=== PATIENT | female | born 1990 | race Caucasian/White ===

== ENCOUNTER 2016-09-15 18:17 | Emergency (ER) | payer OTHER ==
[2016-09-15 18:46] VITALS: BP 101/68; PULSE 91; RESP 20; TEMP 97.8; O2SAT 98
--- NOTE | 2016-09-15 19:02 | C.PDOC ---
History Of Present Illness 26 yo female come in for evaluation of open wound over Right lower leg developed 2 days ago. Pt sts," leg stuck between car tires". Pt admits, ambulatory without difficulty. Denies deformity, weakness, sensory or vascular deficits to Right leg. Ambulate to Ed for evaluation, not in any apparent distress. Time Seen by Provider: 09/15/16 18:48 Chief Complaint (Nursing): Abnormal Skin Integrity History Per: Patient Onset/Duration Of Symptoms: Sudden Onset Past Medical History Reviewed: Historical Data, Nursing Documentation, Vital Signs Vital Signs: Last Vital Signs Temp 97.8 F 09/15/16 18:45 Pulse 91 H 09/15/16 18:45 Resp 20 09/15/16 18:45 BP 101/68 09/15/16 18:45 Pulse Ox 98 09/15/16 19:03 - Medical History PMH: No Chronic Diseases Surgical History: No Surg Hx Family History: States: No Known Family Hx - Social History Hx Tobacco Use: No Hx Alcohol Use: No Hx Substance Use: No - Immunization History Hx Tetanus Toxoid Vaccination: No Hx Influenza Vaccination: No Hx Pneumococcal Vaccination: No Review Of Systems Except As Marked, All Systems Reviewed And Found Negative. Constitutional: Negative for: Fever, Chills Musculoskeletal: Positive for: Leg Pain Skin: Positive for: Lesions Neurological: Negative for: Weakness, Numbness Physical Exam - Physical Exam Appears: Well, Non-toxic, No Acute Distress Skin: Normal Color, Warm, Other ((+) Right anterior lower leg 2cm laceration, cutaneous, dry, no erythema, no edema. no wound draining.) Extremity: Normal ROM, No Tenderness, No Pedal Edema, No Calf Tenderness (Right) , No Deformity Neurological/Psych: Oriented x3, Normal Speech, Normal Motor, Normal Sensation, Normal Reflexes ED Course And Treatment O2 Sat by Pulse Oximetry: 98 - Other Rad Right tib/fib X-Ray: Interpreted by Me, Viewed By Me Interpretation: no acute fx or FB noted Progress Note: On re-eavluation, pt is afeberile, hemodynamicaly stable. Non- toxic. RLE: exam c/w contusion to anterior tib/fib with laceration. FAROM, no neurovascular deficits. xray review and appears normal. Wound repaired. tetanus, abx given. Pt advised on wound care. ref. to F/u with PMD in 2 days for wound check. return to ED at any time if any sign of infection. Laceration - Laceration Repair Right lower leg Wound Length (In cm): 2cm Description Of Wound: Linear Wound Cleansed With: Betadine Anesthesia: Lidocaine 2% Wound Examination: Irrigated With Saline, No FB With Wound Exploration, No Tendon Injury With Wound Exploration Wound Closure: Suture (#4) Suture Technique And Material Used: Interrupted, Prolene (4-0) Wound Complexity: Simple Disposition Counseled Patient/Family Regarding: Studies Performed, Diagnosis, Need For Followup, Rx Given - Disposition Referrals: [facility] [Outside] Disposition: HOME/ ROUTINE Disposition Time: 19:40 Condition: STABLE Additional Instructions: Keep wound clean dry for 2 days Apply antibiotic cream topically Suture removal in 10-14 days return to ED at anytime if any sign of infection. Prescriptions: Amoxicillin/Clavulanate [Augmentin 875 MG-125 MG] 1 tab PO BID #14 tab Bacitracin OINT 1 applic TP BID #1 tube Instructions: Laceration (ED) - Clinical Impression Clinical Impression: Laceration - injury
[2016-09-15] MEDS ORDERED: Lidocaine 2% Inj (20ml) INFIL ONE (19:27)
[2016-09-15] MEDS ORDERED: Lidocaine 2% Inj (20ml) ONE (19:30)
[2016-09-15] MEDS ORDERED: Bacitracin 500 Units/gm Oint Foilpak UD ONE (19:51)
[2016-09-15] MEDS ORDERED: Amoxicillin-Clav 875-125 mg Tab PO STA (19:54)
[2016-09-15] MEDS ORDERED: Amoxicillin-Clav 875-125 mg Tab PO ONE (20:06)
--- NOTE | 2016-09-16 12:28 | RAD ---
PROCEDURE: Radiographs of the right tibia and fibula. HISTORY: injury COMPARISON: None available. TECHNIQUE: Frontal and lateral views obtained. FINDINGS: BONES: No evidence of acute displaced fracture nor dislocation. No cortical destructive changes seen. JOINT SPACES: Unremarkable. OTHER FINDINGS: There may be some mild localized pretibial soft tissue swelling IMPRESSION: There appears to be some mild localized pretibial soft tissue swelling however no evidence of acute displaced fracture nor dislocation
== END 2016-09-15 20:08 | disposition home or self-care (01) ==
LOC: C.ER 18:17
DX: S81.811A Laceration without foreign body, right lower leg, initial encounter (principal); W23.0XXA Caught, crushed, jammed, or pinched between moving objects, initial encounter

== ENCOUNTER 2016-09-29 17:55 | Emergency (ER) | payer OTHER ==
[2016-09-29 18:07] VITALS: BP 106/54; PULSE 84; RESP 18; TEMP 97.4; O2SAT 100
--- NOTE | 2016-09-29 18:26 | C.PDOC ---
History Of Present Illness 26 y/o female presents to ED for suture removal of a previous 4cm laceration to right whiteside. Patient denies pain, drainage, fever, numbness, weakness or any other complaints at this time. Time Seen by Provider: 09/29/16 18:14 Chief Complaint (Nursing): Suture/Staple Removal History Per: Patient History/Exam Limitations: no limitations Onset/Duration Of Symptoms: Days Ago Location Of Injury: Right: Leg, Anterior: Leg Past Medical History Reviewed: Historical Data, Nursing Documentation, Vital Signs Vital Signs: Last Vital Signs Temp 97.4 F L 09/29/16 18:03 Pulse 84 09/29/16 18:03 Resp 18 09/29/16 18:03 BP 106/54 L 09/29/16 18:03 Pulse Ox 100 09/29/16 18:27 Family History: States: Unknown Family Hx - Social History Hx Tobacco Use: No Hx Alcohol Use: Yes Hx Substance Use: No - Immunization History Hx Tetanus Toxoid Vaccination: Yes Hx Influenza Vaccination: No Hx Pneumococcal Vaccination: No Review Of Systems Except As Marked, All Systems Reviewed And Found Negative. Constitutional: Negative for: Fever, Chills Respiratory: Negative for: Shortness of Breath Gastrointestinal: Negative for: Nausea, Vomiting, Diarrhea Musculoskeletal: Negative for: Leg Pain Skin: Negative for: Rash Neurological: Negative for: Weakness, Numbness Physical Exam - Physical Exam Appears: Non-toxic, No Acute Distress Skin: Normal Color, Warm Head: Atraumatic, Normacephalic Eye(s): bilateral: Normal Inspection, PERRL, EOMI Oral Mucosa: Moist Throat: Normal, No Erythema Neck: Normal ROM Extremity: Tenderness (Tenderness surrounding right whiteside to anterior leg ), Other (Anterior whiteside sutured laceration to right leg, no drainage, no hematoma) Neurological/Psych: Oriented x3, Normal Speech, Normal Motor, Normal Sensation, Normal Reflexes ED Course And Treatment O2 Sat by Pulse Oximetry: 100 (RA) Pulse Ox Interpretation: Normal Disposition Counseled Patient/Family Regarding: Diagnosis, Need For Followup - Disposition Disposition: HOME/ ROUTINE Disposition Time: 18:26 Condition: STABLE Forms: General Discharge Instructions - POA Present On Arrival: None - Clinical Impression Clinical Impression: Removal of suture - PA / USER SUPPORT SPECIALIST / Resident Statement / has reviewed & agrees with the documentation as recorded. / has examined the patient and agrees with the treatment plan. - Scribe Statement The provider has reviewed the documentation as recorded by the Ramonitaibe Dora Khan All medical record entries made by the Ramonitaibbasil were at my direction and personally dictated by me. I have reviewed the chart and agree that the record accurately reflects my personal performance of the history, physical exam, medical decision making, and the department course for this patient. I have also personally directed, reviewed, and agree with the discharge instructions and disposition.
== END 2016-09-29 18:31 | disposition home or self-care (01) ==
LOC: C.ER 17:55
DX: Z48.02 Encounter for removal of sutures (principal)

== ENCOUNTER 2018-02-01 19:49 | Emergency (ER) | payer OTHER ==
[2018-02-01 19:58] VITALS: BP 108/67; PULSE 96; RESP 18; TEMP 98.1; O2SAT 100
[2018-02-01 20:25] LABS: SQUAMOUS EPITHIAL 6 /hpf (0-5); URINE BACTERIA RARE (<OCC); URINE BILIRUBIN NEGATIVE (NEGATIVE); URINE BLOOD NEGATIVE (NEGATIVE); URINE CLARITY Hazy (Clear); URINE COLOR Yellow (YELLOW); URINE GLUCOSE (UA) NORMAL (Normal); URINE LEUKOCYTE ESTERASE NEG Leu/uL (Negative); URINE PROTEIN 1+ mg/dL (NEGATIVE); URINE UROBILINOGEN NORMAL mg/dL (0.2-1.0)
[2018-02-01 20:26] LABS: HCG,QUALITATIVE URINE NEGATIVE (NEGATIVE)
--- NOTE | 2018-02-01 21:07 | C.PDOC ---
Addendum entered and electronically signed by Lety Dupont PA-C 02/02/18 03:13: Addendum Addendum: 02/02/18 03:13 Chart needs to be signed. Original Note: History Of Present Illness 27 y/o female presents to ED for evaluation of urinary frequency, urgency, and dysuria for the last few days. Pt states symptoms feel similar to previous UTI. Otherwise, denies fever, chills, back pain, hematuria, or vaginal discharge. Time Seen by Provider: 02/01/18 19:58 Chief Complaint (Nursing): Female Genitourinary History Per: Patient History/Exam Limitations: no limitations Onset/Duration Of Symptoms: Days Current Symptoms Are (Timing): Still Present Associated Symptoms: Urinary Symptoms. denies: Loss Of Appetite, Back Pain, Chest Pain Alleviating Factors: None Recent travel outside of the [place]: No Additional History Per: Patient Abnormal Vaginal Bleeding: No Past Medical History Reviewed: Historical Data, Nursing Documentation, Vital Signs Vital Signs: Last Vital Signs Temp 98.1 F 02/01/18 19:55 Pulse 96 H 02/01/18 19:55 Resp 18 02/01/18 19:55 BP 108/67 02/01/18 19:55 Pulse Ox 100 02/01/18 19:55 - Medical History PMH: Denies: Chronic Kidney Disease Family History: States: Unknown Family Hx - Social History Hx Tobacco Use: No Hx Alcohol Use: Yes Hx Substance Use: No - Immunization History Hx Tetanus Toxoid Vaccination: Yes Hx Influenza Vaccination: No Hx Pneumococcal Vaccination: No Review Of Systems Except As Marked, All Systems Reviewed And Found Negative. Constitutional: Negative for: Fever, Chills Gastrointestinal: Negative for: Nausea, Vomiting, Abdominal Pain, Diarrhea Genitourinary: Positive for: Dysuria, Frequency. Negative for: Incontinence, Hematuria, Vaginal Discharge, Vaginal Bleeding Musculoskeletal: Negative for: Back Pain Physical Exam - Physical Exam Appears: Non-toxic, No Acute Distress Skin: Normal Color, Warm, Dry Head: Atraumatic, Normacephalic Eye(s): bilateral: Normal Inspection Oral Mucosa: Moist Neck: Supple Gastrointestinal/Abdominal: Soft, Tenderness (mild suprapubic), No Guarding, No Rebound Back: No CVA Tenderness Extremity: Normal ROM, No Deformity Neurological/Psych: Oriented x3, Normal Speech ED Course And Treatment O2 Sat by Pulse Oximetry: 100 (RA) Pulse Ox Interpretation: Normal Progress Note: UA ordered and reviewed. Pt was given Pyridium, and Macrobid. Pt is being discharged home with Rx and is given instructions to follow up with PMD in 1-2 days. Disposition - Disposition Disposition: HOME/ ROUTINE Disposition Time: 21:05 Condition: STABLE Additional Instructions: Followup with PMD within 1-2 days. Return to Ed if feel worse. Prescriptions: Nitrofurantoin Macrocrystals [Macrobid] 1 cap PO BID #14 cap Phenazopyridine [Pyridium] 200 mg PO TID #15 tab Instructions: Urinary Tract Infections in Adults Forms: [facility] ([place]ovenian) - Clinical Impression Clinical Impression: UTI (urinary tract infection) - PA / HIDE CLEANER / Resident Statement MD/DO has reviewed & agrees with the documentation as recorded. - Scribe Statement The provider has reviewed the documentation as recorded by the Scribe KP All medical record entries made by the Scribe were at my direction and personally dictated by me. I have reviewed the chart and agree that the record accurately reflects my personal performance of the history, physical exam, medical decision making, and the department course for this patient. I have also personally directed, reviewed, and agree with the discharge instructions and disposition.
== END 2018-02-01 21:11 | disposition home or self-care (01) ==
LOC: C.ER 19:49
DX: N39.0 Urinary tract infection, site not specified (principal)